=== PATIENT | female | born 1960 ===

== ENCOUNTER 2021-06-16 15:45 | Outpatient (CLI) | payer OTHER ==
[~2021-06-16 15:45] MED LIST: CATAFLAM50 MG PO; DEPO-MEDROL40 MG/ML IM; LYRICA50 MG PO; PERCOCET 10-3251 TAB PO; PERCOCET 5/321 UDTAB PO; SYNTHROID50 MCG PO
== END 2021-06-16 16:00 | disposition home or self-care (01) ==
LOC: PPH VACUNA 15:45
PROVIDERS: ATTEND Emergency Medicine Pediatric Emergency Medicine
DX: Z23 Encounter for immunization (principal)

== ENCOUNTER 2022-01-07 08:00 | Outpatient (CLI) | payer OTHER | END 2022-01-07 08:30 | disposition home or self-care (01) | LOC: PPH VACUNA 08:00 | PROVIDERS: ATTEND Emergency Medicine Pediatric Emergency Medicine | DX: Z23 Encounter for immunization (principal) ==